=== PATIENT | male | born 1930 | race Caucasian/White ===

== ENCOUNTER 2018-09-03 20:59 | Emergency (ER) | payer MEDICARE, MEDICAID ==
[~2018-09-03] VITALS: Ht 175.3 cm; Wt 91.0 kg
[2018-09-04 00:11] LABS: CLARITY URINE CLEAR (CLEAR); COLOR URINE YELLOW (YELLOW); KETONES URINE NEGATIVE (NEGATIVE); LEUKOCYTE ESTERASE URINE NEGATIVE (NEGATIVE); NITRITE URINE NEGATIVE (NEGATIVE); OCCULT BLOOD URINE 2+ (NEGATIVE); PROTEIN URINE 2+ (NEGATIVE); SPECIFIC GRAVITY URINE 1.012 (1.005-1.030); UROBILINOGEN URINE 0.2 E.U./dL (0.2-1.0)
[2018-09-04 06:09] VITALS: BP 168/76
== END 2018-09-04 06:14 | disposition home or self-care (01) ==
LOC: ER 20:59
DX: N40.1 Benign prostatic hyperplasia with lower urinary tract symptoms (principal); R33.8 Other retention of urine; I10 Essential (primary) hypertension
CPT/HCPCS: 51702; 99284